=== PATIENT | male | born 1940 | race Caucasian/White ===

== ENCOUNTER 2023-11-29 11:16 | Outpatient (RCR) | payer OTHER, SELFPAY | END 2023-11-29 23:59 | disposition home or self-care (01) | LOC: CRHB 11:16 | PROVIDERS: ATTENDING PHYSICIAN Internal Medicine Cardiovascular Disease; FAMILY PHYSICIAN Family Medicine | DX: I25.10 Atherosclerotic heart disease of native coronary artery without angina pectoris (principal); Z95.1 Presence of aortocoronary bypass graft | CPT/HCPCS: G0422; G0423 ==

== ENCOUNTER 2023-12-27 09:37 | Outpatient (RCR) | payer OTHER, SELFPAY | END 2023-12-27 23:59 | disposition home or self-care (01) | LOC: CRHB 09:37 | PROVIDERS: ATTENDING PHYSICIAN Internal Medicine Cardiovascular Disease; FAMILY PHYSICIAN Family Medicine | DX: I25.10 Atherosclerotic heart disease of native coronary artery without angina pectoris (principal); Z95.1 Presence of aortocoronary bypass graft | CPT/HCPCS: G0422; G0423 ==

== ENCOUNTER 2024-01-24 10:55 | Outpatient (RCR) | payer OTHER, SELFPAY ==
[2024-01-16 12:03] LABS: HDL Cholesterol 44 mg/dl; LDL Cholesterol, Calculated 25 mg/dl; Total Cholesterol 84 mg/dl (50-199); Triglyceride 75 mg/dl (10-149); Very Low Density Lipoprotein 15 mg/dl (0-30)
== END 2024-01-24 23:59 | disposition home or self-care (01) ==
LOC: CRHB 10:55
PROVIDERS: ATTENDING PHYSICIAN Internal Medicine Cardiovascular Disease; FAMILY PHYSICIAN Family Medicine
DX: Z95.1 Presence of aortocoronary bypass graft (principal); I25.10 Atherosclerotic heart disease of native coronary artery without angina pectoris
CPT/HCPCS: 36415; 80061; G0422; G0423

== ENCOUNTER → 2024-04-26 09:06 | Outpatient (REF) | payer OTHER, SELFPAY | LOC: RCS 09:06 | PROVIDERS: ATTENDING PHYSICIAN Internal Medicine Cardiovascular Disease; FAMILY PHYSICIAN Family Medicine | DX: Z95.1 Presence of aortocoronary bypass graft (principal); R00.1 Bradycardia, unspecified | CPT/HCPCS: 93306 ==

== ENCOUNTER 2024-07-01 17:41 | Inpatient (IN) | payer OTHER, SELFPAY ==
[2024-07-01] VITALS (9 sets, daily range): BP systolic 136–186; BP diastolic 51–74; PULSE 40–57; BMI 23.1; BMI 22.8
[2024-07-01 13:41] LABS: % Basophils 0.9 % (0-2); % Immature Granulocytes 0.2 % (0-0.5); % Lymphocytes 32.9 % (20.5-51.1); % Monocytes 6.5 % (1.7-9.3); % Neutrophils 54.5 % (42.2-75.2); Absolute Basophils 0.1 10^3/uL (0-0.2); Absolute Eosinophils 0.5 10^3/uL (0-0.7); Absolute Monocytes 0.6 10^3/uL (0.1-0.6); Absolute Neutrophils 4.9 10^3/uL (1.4-6.5); Hematocrit 42.8 % (39.0-52.0); Hemoglobin 15.3 g/dL (13.0-18.0); Mean Corp Hgb Conc. 35.7 g/dL (33.0-37.0); Mean Corpuscular Hgb 32.9 pg (27.0-31.0); Mean Platelet Volume 10.2 fL (7.4-10.4); Nucleated Red Blood Cells % 0 % (-); Platelet Count 184 10^3/uL (130-400); Red Blood Cell Count 4.65 10^6/uL (4.70-6.10); Red Cell Dist. Width 12.2 % (11.5-14.5)
[2024-07-01 14:02] LABS: ALT (SGPT) 15 U/L (0-50); AST (SGOT) 22 U/L (17-59); Albumin 4.6 g/dl (3.5-5.0); Alkaline Phosphatase 80 U/L (38-126); Blood Urea Nitrogen 21 mg/dl (9-20); Calcium 9.6 mg/dl (8.4-10.2); Carbon Dioxide 31 mmol/L (22-30); Chloride 102 mmol/L (98-107); Glucose 97 mg/dl (70-99); Potassium 4.8 mmol/L (3.5-5.1); Sodium 142 mmol/L (135-145); Total Bilirubin 0.7 mg/dl (0.2-1.3); Total Protein 6.7 g/dl (6.3-8.2); eGFR > 60.00
--- NOTE | 2024-07-01 15:20 | EDRN ---
Dr. Andujar in room w/pt at this time.
--- NOTE | 2024-07-01 15:24 | ED.GENMED ---
History of Present Illness
General
Chief Complaint: Dizziness
Source: patient and family
Time Seen by Provider: 07/01/24 14:56
History of Present Illness
History of Present Illness:
This patient is an 84-year-old male presents emergency department with his son. He lives alone and is quite independent and active. He notes yesterday he was starting to feel little lightheaded. This is gotten much more frequent/intense today.
He only feels it when he is standing up or walking around and it makes him feel uneasy. He has not passed out or worried that he would actually pass out. He denies a sense of movement or spinning, associated chest pain or pressure, back pain, neck
pain, headache, dyspnea, numbness, change in vision, change in swallowing, fever, chills, nausea, vomiting, abdominal pain, anorexia, urinary symptoms. He had a normal bowel movement today without black stool or blood. He denies associated
diaphoresis. Patient is asymptomatic as he is here in the bed
Past History
Past History
ED Past Medical History: CAD, HTN and Hypercholesterolemia
ED Past Surgical History: Cardiac and Cholecystectomy
Patient has exhibited threatening behavior?: No
Social History
Tobacco: Non-smoker
Alcohol: Occasional
Drug: None
Living: alone
Family History
Family History: CAD and Other ([place] - mother & sister)
Phy Exam
Physical Exam
Physical Exam:
GENERAL: Alert , in no apparent distress
EYE: pupils equal and reactive
NECK: Supple, no significant adenopathy.
ENT: o/p clr, mmm.
CARDIAC: Regular rate and rhythm .
LUNGS: Clear breath sounds bilaterally, no acute respiratory distress, no wheezes/rales/rhonchi
ABDOMEN: Soft, without focal tenderness, no r/g, no cvat
NEUROLOGICAL: Alert and oriented, no focal neuro deficits, motor 5 out of 5, sensory intact, [id number] normal, cranial nerves II through XII intact, gait normal
SKIN: Warm and dry, skin intact.
MUSCULOSKELETAL: No edema, well perfused.
PSYCH: Normal and appropriate interaction.
Course
Orders/Labs/Results
Orders:
Orders
07/01/24 13:29
ECG [Electrocardiogram (*1)] Urgent
Reason for Study: Vertigo / Dizzy
EKG- Treatment ONCE
07/01/24 13:35
Complete Blood Count/With Diff Urgent
Comprehensive Metabolic Panel Urgent
07/01/24 15:[address] Non Medication Order As Directed
Physician Order: orthostatics
Abnormal Lab Results
07/01/24
13:35
RBC 4.65 L 10^6/uL
(4.70-6.10)
MCH 32.9 H pg
(27.0-31.0)
Carbon Dioxide 31 H mmol/L
(22-30)
BUN 21 H mg/dl
(9-20)
07/01/24 13:35
07/01/24 13:35
Vital Signs
Initial and Last Documented VS:
Initial Vital Signs
Temp Pulse Resp BP Pulse Ox
97.7 F 41 20 186/64 97
07/01/24 13:27 07/01/24 13:27 07/01/24 13:27 07/01/24 13:27 07/01/24 13:27
Last Documented Vital Signs
Temp Pulse Resp BP Pulse Ox
97.7 F 41 20 186/64 97
07/01/24 13:27 07/01/24 13:27 07/01/24 13:27 07/01/24 13:27 07/01/24 13:27
*Critical Care Note
Total Time (30-74mins, 75-104mins- exclusive of procedures): Not Applicable
Update Note
Update Note:
Patient presents to the Emergency Department with lightheadedness
Number and Complexity of Problems Addressed at the Encounter
� Chronic conditions affecting care:
� Acute Exacerbation and/or Progression of Chronic Illness:
� Differential Diagnosis includes: But not limited to electrolyte disorder, anemia/bleeding, vasovagal events, dehydration, arrhythmia, etc.
Amount and/or Complexity of Data to be Reviewed and Analyzed
� I performed an independent evaluation of and my interpretation is:
EKG: Read by me, sinus bradycardia, no acute ischemia
CT:
Xrays:
Laboratory Studies: Generally unremarkable
Other:
� Review of other/old records reveals: Patient had a echo in March 2024 that showed LVH with an EF of 50 to 55%. Patient had a bypass in September 2023. He has had bradycardia in the past, was noted to be in the 40s rate 2022 but
most recent past rate has been in the 50s per
� Clinical information was obtained by an independent historian: Son
� Prescriptions/Medications Considered but not given:
� Further testing considered but not performed:
Risk of Complications and/or Morbidity or Mortality of Patient Management
� Social determinants of health affecting care:
� Discussion with other providers (PCP, Hospitalists, Consultants, etc):
� Escalation of care including admission/observation vs risk of discharge considered:Case discussed with filter washer, Dr. Koch, aware of history, vitals, etc. He reviewed office notes and states that patient has been as low
as in the 40s in the past and there has been consideration for a pacemaker. Given patient is so symptomatic with upright position here, plan is to admit patient with plan for pacemaker this week. Specifically refers to hospitalist for admission.
Case discussed with Dr. Mauricio SEXTON for admission, response that this will go to [facility]
ED Attending Note
-
Portions of this chart may have been created with voice recognition software.� Occasional wrong word or��sound alike� substitutions may have occurred due to the inherent limitations of voice recognition software.
Discharge Plan
Departure
Patient Disposition: Admit
Date of Disposition: 07/01/24
Time of Disposition: 16:28
Admit to: Telemetry
Presentation/result/management discussed w/ accepting MD/DO: Hospitalist
Condition: Fair
Discharge Problem:
Bradycardia
Prescriptions:
No Action
aspirin 81 MG tablet,delayed release (DR/EC)
81 mg PO HS
atorvastatin 40 mg Tablet
40 mg PO QPM
acetaminophen 325 mg Tablet
650 mg PO Q4HPRN PRN (Reason: mild pain,headache,temp >101F ) Qty: 0 0RF
clopidogrel 75 mg Tablet
75 mg PO DAILY Qty: 30 0RF
pantoprazole 40 mg Tablet,Delayed Release (Dr/Ec)
40 mg PO DAILY Qty: 30 0RF
Referrals:
Bridget Hickman MD [Family Provider] -
Interventions
Interventions:
*Risk Screen - Suicide Last Done: 07/01/24 15:47
*General Assessment Last Done: 07/01/24 15:47
*Neglect/Abuse Screening Last Done: 07/01/24 15:47
ED- Fall Risk Assessment Last Done: 07/01/24 15:47
*ED COVID-19 Vaccine History Last Done: 07/01/24 15:47
ED- Neurological Assessment Last Done: 07/01/24 16:08
ED- Cardiac Assessment Last Done: 07/01/24 16:08
ED Swallowing Screen Last Done: 07/01/24 16:08
Discharge Date and Time
Print Language: BOTSWANAN
--- NOTE | 2024-07-01 15:49 | EDRN ---
Pt when orthostatic vs were performed was lying and pt who had been in an SB cardiac rhythm had his heart rate decrease to 38.
--- NOTE | 2024-07-01 15:59 | EDRN ---
At 15:59 this RN wrote a TT to Dr. Andujar:
'Orthostatic vs were okay but his HR decreased as low as 38 when lying flatand just now again when lying at dharmesh 30 degrees. Pt was lightheaded on sitting only and only slightly.'
--- NOTE | 2024-07-01 16:00 | EDRN ---
Pt was moved from room #30 after informing Shanel Martínez charge histotechnologist nurse for an okay w/ code cart placed outside of room. Pt is in SB still w/ HR decreasing at times into the 30's. Son in room w /pt at this time.
--- NOTE | 2024-07-01 16:25 | EDRN ---
Dr. Andujar in room w /pt at this time.
--- NOTE | 2024-07-01 16:25 | EDRN ---
Dr. Andujar in room w/ pt at this time.
--- NOTE | 2024-07-01 16:30 | EDRN ---
Dr. Andujar patient to be admitted for PM r/t symptomatic SB w/ rate decreasing into 30's.
--- NOTE | 2024-07-01 16:52 | EDRN ---
Hospitalist in room w/ pt at this time.
--- NOTE | 2024-07-01 17:08 | HPS.HSE ---
Family Physician
-
Family Physician: Bridget Hickman
Chief Complaint
-
dizziness
History of Present Illness
84-year-old man who yesterday was starting to feel little lightheaded. This became more frequent/intense today. He feels it when he is standing up or walking around. He has not passed out. He denies a sense of movement or spinning, associated
chest pain or pressure, back pain, neck pain, headache, dyspnea, numbness, change in vision, change in swallowing, fever, chills, nausea, vomiting, abdominal pain, anorexia, urinary symptoms. He had a normal bowel movement today without black stool
or blood. He denies associated diaphoresis. Patient is asymptomatic as he is here in the bed with a heart rate in the high 30s. He said his heart rate is usually 'low.' He is on Plavix and ASA. He is not on meds that would cause a low heart
rate.
Medical History
Past Medical History
Past Medical History: Reports Other
Additional Past Medical History:
CAD,
essential HTN
Hypercholesterolemia
History of percutaneous coronary intervention, MAX to RCA, 2 separate procedures, March and July 2009, total of 4 stents
Presence of stent in coronary artery
Thrombocytopenia
Past Surgical History: Reports Other
Additional Past Surgical History:
See above
Social History
Tobacco: Non-smoker
Alcohol: Occasional
Drug: None
Family History
Family History: Not pertinent
Allergies / Home Medications
Allergies reflects when Allergies were last updated in [facility].
Home Medications with original date entered in [facility]
Allergy/Medication List:
Allergies
Allergy/AdvReac Type Severity Reaction Status Date / Time
caffeine [Caffeine] Allergy ANXIOUS, Verified 09/12/23 15:51
DIFF. WITH
BALANCE
Home Medications
aspirin 81 mg tablet,delayed release 81 mg PO HS Heart disease/condition 12/04/20
acetaminophen 325 mg tablet 650 mg (2 x 325 mg) PO Q4HPRN PRN mild pain,headache,temp >101F #0 tabs 10/04/23
clopidogrel 75 mg tablet 75 mg PO DAILY Blood clot prevention/tx #30 tabs 10/04/23
atorvastatin 20 mg tablet 20 mg PO QPM 07/01/24
Review of Systems
-
History Source: Patient
A 12 point ROS was completed and negative except as noted: Yes
Physical Exam
Vital Signs
Vital Signs
Temp Pulse Resp BP Pulse Ox
97.7 F 41 20 186/64 97
07/01/24 13:27 07/01/24 13:27 07/01/24 13:27 07/01/24 13:27 07/01/24 13:27
Physical Exam
General: Well Developed, Well Nourished, No Apparent Distress, Comfortable and Conversant
HEENT: NormoCephalic, Anicteric, Moist mucous membranes, Atraumatic, [place] Conjunctivae, No Ptosis, Nose Appears Normal and Ears Appear Normal
Respiratory: Clear
Cardiac: S1/S2 and Bradycardia
GI: Soft, Non Tender and Non Distended
Musculoskeletal: No Clubbing, No Cyanosis and No Edema
Skin: Warm and Dry; No Rash or Jaundice
Neuro: Awake, Alert, Oriented and AO x 3
Psych: Calm
Laboratory Results
-
07/01/24 13:35
07/01/24 13:35
Laboratory Results
Total Bilirubin 0.7 mg/dl (0.2-1.3) 07/01/24 13:35
AST 22 U/L (17-59) 07/01/24 13:35
ALT 15 U/L (0-50) 07/01/24 13:35
Alkaline Phosphatase 80 U/L (38-126) 07/01/24 13:35
Data Reviewed
-
Lab Data: Labs Reviewed by me
Impression/Plan
-
IMPRESSION:
84 man with symptomatic bradycardia with rate in the high 30s.
PLAN:
1. Bradycardia
Cardiology consult:
Likely inpatient pacemaker
Hold Plavix tonight
IVU admit tonight
2. BUN/Creat > 20, probable mild dehydration
Encourage PO intake tonight
Recheck in am
3. BP 186/64, likely worry/stress of hospitalization
Monitor overnight
Avoid beta blockers or agents that slow heart rate.
If still elevated in AM, discuss best agent with cardiology
4. H/O thrombocytopenia, PLT now 184
Not an active problem
OK to proceed with pacemaker procedure
Full code
VCD for DVTp
[2024-07-01] MEDS: LIPITOR 20 MG PO (21:13)
[2024-07-01] MEDS: ASPIR LOW (ENTERIC COATED) 81 MG PO (21:13)
--- NOTE | 2024-07-01 21:37 | PTCARENOTE ---
Pt admitting in 2247- assessment and admission completed at documented. POC discussed- pt verbalized understanding. SB 40s- 50 at this time.
[2024-07-02] VITALS (10 sets, daily range): BP systolic 133–161; BP diastolic 56–81; PULSE 42–72
[2024-07-02 05:38] LABS: Hematocrit 41.7 % (39.0-52.0); Mean Corpuscular Hgb 33.7 pg (27.0-31.0); Mean Corpuscular Volume 93.7 fL (80.0-94.0); Mean Platelet Volume 10.3 fL (7.4-10.4); Platelet Count 161 10^3/uL (130-400); Red Blood Cell Count 4.45 10^6/uL (4.70-6.10); Red Cell Dist. Width 12.2 % (11.5-14.5); White Blood Cell Count 6.4 10^3/uL (4.8-10.8)
[2024-07-02 06:01] LABS: Blood Urea Nitrogen 22 mg/dl (9-20); Carbon Dioxide 26 mmol/L (22-30); Chloride 108 mmol/L (98-107); Estimated Creatinine Clearance 84 ml/min; Glucose 92 mg/dl (70-99); Potassium 4.4 mmol/L (3.5-5.1); Sodium 142 mmol/L (135-145); eGFR > 60.00
[2024-07-02 06:39] LABS: TSH 2.06 uIU/ml (0.47-4.68)
--- NOTE | 2024-07-02 06:43 | W.PN.HOSP.TC ---
Today's Communication/Plan
-
.
Assessment / Plan
Assessment / Plan
Physical Exam
General: Well Developed, Well Nourished, No Apparent Distress, Comfortable and Conversant
HEENT: NormoCephalic, Anicteric, Moist mucous membranes, Atraumatic, [place] Conjunctivae,.
Respiratory: Clear
Cardiac: S1/S2 and Bradycardia
GI: Soft, Non Tender and Non Distended
Musculoskeletal: No Clubbing, No Cyanosis and No Edema
Skin: Warm and Dry; No Rash or Jaundice
Neuro: Awake, Alert, Oriented and AO x 3
Psych: Calm
84 man with symptomatic bradycardia with rate in the high 30s.
PLAN:
# Symptomatic bradycardia
He reports lightheadedness at times. No chest pain
No evidence of acute ischemia on EKG
No Hx of rate control medications intake
Hold Plavix
Normal TSH
Echocardiogram in March 2024 showed LVH, LVEF 50 to 55%, mild MR, mild aortic regurgitation.
Appreciate cardiology input. Primary pharmaceutical analyst is Dr Cordero.
# Primary Hypertension
well compensating for his low heart rate
# H/O thrombocytopenia, PLT count seems acceptable.
Not an active problem
OK to proceed with pacemaker procedure
# Mixed hyperlipidemia
Full code
VCD for DVTp
Total time spent to see the patient, examine the patient on the floor, review data and lab results, discuss the treatment plan with the patient, nursing staff around 55 minutes
Anticipated Discharge: 24 - 48 hours
Subjective/Interval History
-
Date of Service: July 02, 2024
No chest pain
NO sob
No palpitation
HR around 44
Objective Data
-
Labs:
Laboratory Results
07/02/24
05:14
WBC 6.4
Hgb 15.0
Hct 41.7
Plt Count 161
Sodium 142
Potassium 4.4
Chloride 108 H
Carbon Dioxide 26
BUN 22 H
Creatinine 0.7
Glucose 92
Calcium 9.0
Vital Signs:
Vital Signs
Temp Pulse Resp BP Pulse Ox
98.0 F 47 18 161/58 98
07/02/24 04:20 07/02/24 06:12 07/02/24 04:20 07/02/24 06:12 07/02/24 04:20
--- NOTE | 2024-07-02 07:08 | PTCARENOTE ---
Chest clipped, CHG wiped and gown changed.
--- NOTE | 2024-07-02 07:42 | CON.CAR ---
Addendum entered and electronically signed by Julian Gilman MD 07/02/24 10:07:
I saw and examined the patient.
The Suction Roller's note was reviewed and I agree with the note.
Comment:
GEN: No distress, awake, Ox3
HEENT: supple, anicteric, mmm
LUNGS: CTA, no wheezes/rales
CV: Reg, S1/S2, 1/6 syst LSB, no gallop
ABD: soft, BS+, NT/ND
EXT: No edema
NEURO: Gross non-focal
SKIN: No rash
Plan:
84-year-old male with past medical history of CABG August 2023 presents with dizziness, lightheadedness, and near syncope. Over the past several days this has worsened especially with exertion. His beta-blockers were stopped post bypass surgery.
He denies any chest pains or shortness of breath. He denies dehydration. He was found to have heart rates in the 30s with marked sinus bradycardia.
Echo from March 2024 with EF 50 to 55%, mild aortic stenosis, and mild mitral regurgitation.
With continued symptomatic bradycardia with coronary artery disease and the need for beta-effie therapy, we agreed to proceed with permanent pacemaker in AM. N.p.o. after midnight. Orthostatic vital signs were negative.
Continue aspirin and atorvastatin. Hold Plavix.
Original Note:
Consultation
Consultation Request
Date/Time Consultation Performed: 07/02/24
Requesting Provider: Dr. Reagan
Performing Provider: Ana Maria Hale PA-C for Dr. Gilman
Reason for Consultation: bradycardia
Medical History
-
Chief Complaint: bradycardia
History of Present Illness:
Patient is an 84-year-old male with past medical history of CAD status post remote stenting to RCA in 2008, status post CABG 08/2023 with history of chronic sinus bradycardia. He reports post bypass his heart rates had been up to the 60s for a
time, however then seem to have trended back down. At last office visit 02/2024 was noted to have a heart rate of 40 not on AV noelle blocking agents. He underwent repeat echocardiogram with EF 50%, no significant change compared to prior. He was
recommended a 5-day monitor, although it does not appear this was ever completed. He now presents back with lightheadedness. He states over the last several days he has noted episodes of lightheadedness feeling as though he was going to pass out
worse with standing or walking, relieved with sitting down. He denies associated chest pain or shortness of breath. He denies recent changes to medications, new supplements. He does not feel as though he is dehydrated. Denies thyroid issues.
Cardiology consulted for evaluation
PMH:
CAD
s/p CABG x3 (CHEN-LAD, SVG-PDA, SVG-OM) and LAAL 09/27/2023 w/ Dr. Saucedo
s/p 3.5 mm and 3 mm Xience to ostial and mid to distal RCA 04/16/09
s/p 3.5 mm Xience to ostial RCA and 3.0 mm Xience to mid RCA 08/07/09
HTN
HLD
Sinus bradycardia
h/o chest pain and eventually s/p lap scar 2020
Past Medical History
Past Medical History: Other (in HPI)
Past Surgical History: Cardiac (RCA PCI 2010), Cholecystectomy and Orthopedic
Social History
Tobacco: Non-Smoker
Alcohol: Occasional
Drug: None
Personal:
Living: Alone
Family History
Family History: CAD
Allergies / Home Medications
Allergy/AdvReac Type Severity Reaction Status Date / Time
caffeine [Caffeine] Allergy ANXIOUS, Verified 09/12/23 15:51
DIFF. WITH
BALANCE
�Medication �Instructions �Recorded �Confirmed �Type
aspirin 81 mg tablet,delayed 81 mg PO HS Heart disease/condition 12/04/20 07/01/24 History
release
acetaminophen 325 mg tablet 650 mg (2 x 325 mg) PO Q4HPRN PRN 10/04/23 07/01/24 Rx
mild pain,headache,temp >101F #0
tabs
clopidogrel 75 mg tablet 75 mg PO DAILY Blood clot 10/04/23 07/01/24 Rx
prevention/tx #30 tabs
atorvastatin 20 mg tablet 20 mg PO QPM High Cholesterol 07/01/24 07/01/24 History
Review of Systems
-
History Source: Patient
All other systems: Negative unless noted
Physical Exam
Vital Signs
Temp Pulse Resp BP Pulse Ox
98.3 F 47 18 161/58 96
07/02/24 07:15 07/02/24 06:12 07/02/24 07:15 07/02/24 06:12 07/02/24 07:15
Lab Results
07/02/24 05:14
07/02/24 05:14
Physical Exam
General: No Apparent Distress and Comfortable
HEENT: Normocephalic, Anicteric and Moist Mucous Membranes
Respiratory: Clear and Non Labored Respirations
Cardiac: S1/S2, Regular Rhythm and Other (tarik)
GI: Normal Bowel Sounds
Musculoskeletal: No Clubbing, No Cyanosis and No Edema
Skin: Warm and Dry
Neuro: AO x 3
Impression / Plan
-
Primary Blood Bank Custodian: Dr. YFN Cordero
Assessment:
Presentation with lightheadedness
Sinus bradycardia
CAD
s/p CABG x3 (CHEN-LAD, SVG-PDA, SVG-OM) and LAAL 09/27/2023 w/ Dr. Saucedo
s/p 3.5 mm and 3 mm Xience to ostial and mid to distal RCA 04/16/09
s/p 3.5 mm Xience to ostial RCA and 3.0 mm Xience to mid RCA 08/07/09
HTN
HLD
h/o chest pain and eventually s/p lap scar 2020
ECHO 10/02/23: Technically difficult study, EF 50%, abnormal septal motion consistent with postop status, mild , peak/mean gradient 16/9 mmHg, no AR
ECHO 04/26/24: EF 50 to 55%, mild LVH, trace to mild MR, borderline AAS with trace AR, peak/mean gradient 17/9 mmHg, normal right heart
Plan:
-Patient presents with several days of lightheadedness, mostly with standing and walking, relieved by sitting
-He has baseline sinus bradycardia with heart rates in the 40s to 50s by review of prior notes. Apparently was in the 30s on presentation, however current heart rate in 50s.
-Recent echo with results as above, will not repeat at this time
-not on AV noelle blocking agents
-TSH WNL
-check ortho VS
-ambulate to see if pulse drops with ambulation
-may require pacemaker this admission
-continue asa. plavix on hold
Data Reviewed
-
EKG: Tracing Personally Visualized and interpreted
Medical Tests (Nuc Med, Echo etc): Report Reviewed by me
Labs: Labs Reviewed by me
Old Records: Reviewed
--- NOTE | 2024-07-02 08:36 | PTCARENOTE ---
Ortho vitals obtained, charted, denies lightheadedness with standing
--- NOTE | 2024-07-02 11:21 | PTCARENOTE ---
Addendum entered by Eliot Hernandez RN 07/02/24 11:30:
Patient denies lightheadedness at rest. SB HR 40-50's, BP 146/62. Walked in [place] earlier today with assistance. Using call mcclellan for assistance out of bed
Original Note:
Patient denies lightheadedness at rest. SB HR 40-50's, BP 109/61. Walked in [place] earlier today with assistance. Using call mcclellan for assistance out of bed
--- NOTE | 2024-07-02 12:34 | CM ---
Chart reviewed. Patient is independent of ADLS, lives alone in a split level,0 MACHO, 0 DME. Plan is for the patient to return home. CM to follow
[2024-07-02] MEDS: LIPITOR 20 MG PO (17:13)
[2024-07-02] MEDS: ASPIR LOW (ENTERIC COATED) 81 MG PO (20:58)
--- NOTE | 2024-07-02 21:12 | PTCARENOTE ---
Assumed care of pt. AOPrincess and pleasant. Tele- SB. HR 40-50s. Pt has no c/o at this time. POC reviewed w/ pt. Verbalizes understanding. Currently in bed; call eleuterio w/in reach.
[2024-07-03] VITALS (13 sets, daily range): BP systolic 129–155; BP diastolic 55–80
--- NOTE | 2024-07-03 01:35 | PTCARENOTE ---
On ambulation pt HR increases to 60-80s. At rest pt HR 30-40s.
--- NOTE | 2024-07-03 07:30 | W.PN.HOSP.TC ---
Today's Communication/Plan
-
.
Assessment / Plan
Assessment / Plan
Physical Exam
General: Well Developed, Well Nourished, No Apparent Distress, Comfortable and Conversant
HEENT: NormoCephalic, Anicteric, Moist mucous membranes, Atraumatic, [place] Conjunctivae,.
Respiratory: Clear
Cardiac: S1/S2 and Bradycardia
GI: Soft, Non Tender and Non Distended
Musculoskeletal: No Clubbing, No Cyanosis and No Edema
Skin: Warm and Dry; No Rash or Jaundice
Neuro: Awake, Alert, Oriented and AO x 3
Psych: Calm
84 man with symptomatic bradycardia with rate in the high 30s.
PLAN:
# Symptomatic bradycardia
Plan for pacemaker today, NPO this morning
He reports lightheadedness at times. No chest pain
No evidence of acute ischemia on EKG
No Hx of rate control medications intake
Hold Plavix
Normal TSH
Echocardiogram in March 2024 showed LVH, LVEF 50 to 55%, mild MR, mild aortic regurgitation.
Appreciate cardiology input. Primary automotive service management teacher is Dr Cordero.
# Primary Hypertension
well compensating for his low heart rate
# H/O thrombocytopenia, PLT count seems acceptable.
Not an active problem
OK to proceed with pacemaker procedure
# Mixed hyperlipidemia
Full code
VCD for DVTp
Total time spent to see the patient, examine the patient on the floor, review data and lab results, discuss the treatment plan with the patient, nursing staff around 55 minutes
Anticipated Discharge: 24 - 48 hours
Subjective/Interval History
-
Date of Service: July 03, 2024
No chest pain
No sob
Objective Data
-
Vital Signs:
Vital Signs
Temp Pulse Resp BP Pulse Ox
97.6 F 43 16 154/55 95
07/03/24 01:30 07/03/24 01:34 07/03/24 01:30 07/03/24 01:34 07/03/24 01:30
--- NOTE | 2024-07-03 07:47 | W.PN.UPDATE ---
Update Note
Progress Note Update
Briefly, patient is a pleasant 84-year-old male with a past medical history significant for CAD with PCI 2008 and CABG August 2023, hypertension, hyperlipidemia who presented for worsening symptomatic bradycardia. Patient symptoms including
dizziness, lightheadedness, and near syncope. Due to patient's symptomatic bradycardia in the setting of coronary artery disease and need for beta-effie therapy (AV noelle blocking agents), patient would benefit from implantation of a dual-chamber
pacemaker. We discussed pacemaker indications and device implant in detail. For implant there is an approximate 1:1000 risk of AL/stroke/ and a 1% risk of pneumothorax/tamponade/infection/bleeding. We also discussed post procedure implant
restrictions including positions to avoid with implant arm for first six weeks after implant as well as driving restrictions. I took time to answer all questions. Consent signed and placed on chart. Patient remain n.p.o., hold Plavix for now.
--- NOTE | 2024-07-03 09:45 | PTCARENOTE ---
Assumed care at 0700. Patient in bed resting comfortable, denies lightheadedness at rest. SB HR 50's, VSS. Plan of care reviewed, report called to the lab support service tech. Son updated over the phone
--- NOTE | 2024-07-03 12:37 | PTCARENOTE ---
2% CHG wipes to chest completed
--- NOTE | 2024-07-03 13:50 | PTCARENOTE ---
Report given and patient sent to the EP lab in his bed
--- NOTE | 2024-07-03 14:05 | CM ---
CM following for DC planning needs.
Met w/ patient at bedside. He is anticipating a PPM today and is awaiting this procedure.
Anticipated DC plan is for home, no needs.
CM to follow for DC planning needs.
--- NOTE | 2024-07-03 15:50 | ITS.CL.PACE ---
Photo Mask Inspector - Pacemaker Implant
Pacemaker Implant
Procedure Report:
Primary Care Doctor: Bridget Hickman MD
Primary Supervisor Glycerin: Emmanuel Cordero MD
Procedure Date: 07/03/2024
Name of procedure:
1. Placement of a dual-chamber pacemaker with left bundle area pacing lead for conduction system pacing
2. Subclavian venography
History:
1. Patient is a pleasant 84-year-old male with a past medical history significant for hypertension, hyperlipidemia, CAD status post PCI 2008 followed by CABG 2022 with symptomatic bradycardia. Patient experienced lightheadedness, dizziness,
near-syncope. Patient off beta-effie therapy due to bradycardia however given CAD, patient needs beta-effie therapy/AV noelle blocking agents for continued treatment.
2. Please refer to H&P for complete history.
Indication:
Symptomatic bradycardia
Need for AV noelle blocking agents due to coronary vascular disease
Methods:
After informed consent was obtained, the patient was brought to the EP laboratory in a postabsorptive, nonsedated state. Peripheral IV access was established. Prophylactic antibiotics were administered prior to incision. Continuous ECG, blood
pressure, and pulse oximetry were initiated. Cardioversion patch electrodes were placed on the patient's chest and back. A grounding patch was applied to the skin. Sedation was administered by anesthesia services.
In order to define the extrathoracic portion of the subclavian vein and exclude significant venous obstruction or anomalous anatomy, subclavian venography was performed prior to the procedure. Using the patient's left peripheral IV, contrast was
injected and images were recorded. The left subclavian vein and SVC were found to be widely patent.
The left chest was prepared and draped in a sterile fashion. A time-out was performed. Local anesthesia was injected in the subcutaneous tissue in the infraclavicular area. An incision was made medial to the deltopectoral groove. The subcutaneous
tissue was dissected the level of the prepectoral fascia. A subcutaneous pocket was created. Under fluoroscopic guidance and with the assistance of the images from the venogram, 2 separate venipunctures were made using micropuncture and modified
Seldinger technique. These were performed in the extrathoracic portion of the subclavian vein. Guidewires were passed and two peel-away sheaths were placed, and used to advance leads into the circulation.
Fluoroscopy was used to determine likely anatomic site for left bundle branch pacing. The Evena Medicaltronic C315 sheath was used to deliver the Medtronic 3830 Selectsecure pacing lead with the helix exposed just exposed from the sheath tip during continuous
monitoring when pacemapping the septum during gentle clockwise rotation to obtain a paced QRS morphology of a W pattern in lead V1. Once the suspected optimal site was identified, lead deployment was performed with several rapid rotations as paced
QRS morphology was intermittently monitored until a paced QRS complex in lead V1 demonstrated development of an R wave (qR or rSR). Unipolar pacing impedance dropped by approximately 100-200 ohms suggesting it had reached the left ventricular
subendocardial. Stable VEgm injury current is present throughout lead position and at end of case. Final unipolar pacing impedance is 1350 Ohms. Unipolar pacing threshold is stable at 0.5 V @ 0.4 ms. The patient had pre-existing narrow QRS. Final
conduction system paced QRS complex duration is 109 ms, LVAT is 62 ms, and peak V5 -> peak V1 timing is 63 ms. The C315 sheath was slit under fluoroscopy ensuring lead position and stability.
Next, the right atrial lead was positioned in the right atrial appendage. Adequate sensing and pacing parameters were found, and no diaphragmatic stimulation was seen [id number] high-output pacing. Both sheaths were split, and the leads were
secured to the fascia with Ethibond ties.
The pocket was flushed with antibiotic solution and hemostasis was assured. The generator was connected to the leads and placed inside the pocket. The device was sutured to the fascia. Floseal was applied. The wound was closed with 3 running
layers of absorbable suture, and steri-strips were applied. Dressing applied over steri-strips in standard fashion.
Following the procedure, the patient was taken to the recovery area in stable condition. A chest x-ray to be obtained post procedure as routine.
Lead parameters and device programming:
- RA Lead (Medtronic, Model 5076, # [id number]): Sensing 5.1 mV, Pacing threshold 0.5 V at 0.4 ms, Imp 551 Ohm
- RV Lead (Medtronic, Model 3830, #[id number]): Sensing 9.4 mV, Pacing threshold 0.5 V at 0.4 ms, Imp 741 Ohm
- Device: Medtronic, Model W1DR01 pacemaker (#[id number]), programmed AAIR�DDDR, mode switch on, lower rate 60, upper tracking rate 130
Conclusions:
1. Successful placement of a dual-chamber pacemaker with conduction system pacing (LBBAP)
2. Subclavian venography
Recommendations:
1. Return to patient room
2. Chest x-ray today, [facility] in AM
3. IV antibiotics while the patient is admitted.
4. OK to resume home medications as indicated
5. Pressure dressing to be removed in AM, aquacell to remain until wound check
6. Follow-up will be arranged in the office in 7-10 days post-discharge
Filipe Hinojosa, DO
Clinical Cardiac Section Repairer
cc: Bridget Hickman MD; Emmanuel Cordero MD
--- NOTE | 2024-07-03 16:25 | PTCARENOTE ---
Patient received form the lab animal technologist. He is AO x 3, denies pain. Left chest wall pressure intact with immobilizer. NSR HR in 70's, BP 155/75, 98% on room air.
[2024-07-03] MEDS: LIPITOR 20 MG PO (16:53)
--- NOTE | 2024-07-03 17:42 | PTCARENOTE ---
Patient tolerated dinner, denies pain and sent to X-ray in wheelchair.
--- NOTE | 2024-07-03 21:36 | PTCARENOTE ---
Assumed care of pt. Tele- SR. L chest wall w/ steri-strips, aqaucel, and pressure dsg c/d/i. L arm immobilizer on. Pt aware of activity restrictions. Pt has no c/o at this time. Currently in bed; call eleuterio w/in reach.
[2024-07-03] MEDS: ANCEF 5 IV (22:21)
[2024-07-03] MEDS: ASPIR LOW (ENTERIC COATED) 81 MG PO (22:21)
[2024-07-03] MEDS: TYLENOL 650 MG PO (22:39)
[2024-07-04 04:45] VITALS: BP 129/67
[2024-07-04] MEDS: ANCEF 5 IV (04:53)
[2024-07-04 05:16] LABS: Hematocrit 42.6 % (39.0-52.0); Hemoglobin 15.4 g/dL (13.0-18.0); Mean Corp Hgb Conc. 36.2 g/dL (33.0-37.0); Mean Corpuscular Volume 91.4 fL (80.0-94.0); Mean Platelet Volume 10.3 fL (7.4-10.4); Platelet Count 165 10^3/uL (130-400); Red Blood Cell Count 4.66 10^6/uL (4.70-6.10); Red Cell Dist. Width 12.3 % (11.5-14.5); White Blood Cell Count 8.1 10^3/uL (4.8-10.8)
[2024-07-04 05:39] LABS: Blood Urea Nitrogen 18 mg/dl (9-20); Carbon Dioxide 22 mmol/L (22-30); Chloride 104 mmol/L (98-107); Estimated Creatinine Clearance 84 ml/min; Glucose 95 mg/dl (70-99); Magnesium 1.9 mg/dl (1.6-2.3); Potassium 4.1 mmol/L (3.5-5.1); Sodium 141 mmol/L (135-145); eGFR > 60.00
--- NOTE | 2024-07-04 06:13 | PTCARENOTE ---
Care link completed this AM.
[2024-07-04 06:42] VITALS: BP 141/68
--- NOTE | 2024-07-04 07:00 | PTCARENOTE ---
pt received at change of shift. AAOx3. pt denies pain. A paced on telemetry heart rate 60s. pulses palpable. no edema. pt on room air. lung sounds clear. left chest wall incision with aquacel, scant amount of old drainage. active bowel sounds
tolerating diet, denies nausea. voiding in bathroom. pt ambulated independently without difficulty. see worklist for full nursing assessment and interventions.
--- NOTE | 2024-07-04 07:36 | W.PN.CARDCBS ---
Addendum entered and electronically signed by Filipe Hinojosa DO 07/04/24 09:01:
I saw and examined the patient.
The Body Masker's note was reviewed and I agree with the note.
Comment:
GENERAL: no acute distress
EYE: sclera anicteric
NECK: Supple, no JVD, no carotid bruit appreciated
ENT: normal nose, moist mucosal membranes
CARDIAC: Regular rate and rhythm, +S1/S2, no murmur, rubs, or gallops; L CIED site C/D/I, non-tender
CHEST/PULMONARY: Normal effort, clear breath sounds
ABDOMEN: Soft, without focal tenderness or distention
NEUROLOGICAL: Alert and oriented x3
SKIN: Warm and dry, no rash
PSYCH: Normal and appropriate interaction.
A/P as below
Patient doing well post pacemaker implantation
APVS on telemetry
CXR no PTX
[facility] shows appropriate device function, stable lead sensing, impedance, pacing thresholds
Start toprol XL 25 mg daily for ischemic heart disease
Resume plavix 07/05; incision check scheduled
OK to DC from CV standpoint
Original Note:
Today's Communication / Plan
-
doing well s/p PPM
add toprol 25mg daily
resume plavix 07/05
ok for DC
OP cardiac follow up arranged
Impression / Plan
-
Primary Admissions Clinician: Dr. YFN Cordero
Assessment:
Presentation with lightheadedness
Sinus bradycardia
s/p Medtronic DC PPM 07/03/24
CAD
s/p CABG x3 (CHEN-LAD, SVG-PDA, SVG-OM) and LAAL 09/27/2023 w/ Dr. Saucedo
s/p 3.5 mm and 3 mm Xience to ostial and mid to distal RCA 04/16/09
s/p 3.5 mm Xience to ostial RCA and 3.0 mm Xience to mid RCA 08/07/09
HTN
HLD
h/o chest pain and eventually s/p lap scar 2020
ECHO 10/02/23: Technically difficult study, EF 50%, abnormal septal motion consistent with postop status, mild , peak/mean gradient 16/9 mmHg, no AR
ECHO 04/26/24: EF 50 to 55%, mild LVH, trace to mild MR, borderline AAS with trace AR, peak/mean gradient 17/9 mmHg, normal right heart
Plan:
-Presented with lightheadedness.
-Underwent Medtronic DC pacemaker placement 07/03 for symptomatic sinus bradycardia
-Remains A-paced on review of telemetry
-As now post PPM, add Toprol 25 mg daily as with several brief episodes of sinus tach on review of telemetry overnight
-Chest x-ray without pneumothorax, no acute process
-continue asa. resume plavix tomorrow, 07/05/24
-OP cardiac follow up arranged
-activity restrictions reviewed with patient
-ok for DC today from cardiac standpoint
-d/w hospitalist via TT
Progress Note - Admissions Clinician
Subjective
Date of Service: July 04, 2024
Feels better this morning. No lightheadedness.
Objective
Labs:
07/04/24 04:51
07/04/24 04:51
Labs
Hgb 15.4 g/dL (13.0-18.0) 07/04/24 04:51
Hct 42.6 % (39.0-52.0) 07/04/24 04:51
Plt Count 165 10^3/uL (130-400) 07/04/24 04:51
Sodium 141 mmol/L (135-145) 07/04/24 04:51
Potassium 4.1 mmol/L (3.5-5.1) 07/04/24 04:51
BUN 18 mg/dl (9-20) 07/04/24 04:51
Creatinine 0.7 mg/dL (0.7-1.3) 07/04/24 04:51
Glucose 95 mg/dl (70-99) 07/04/24 04:51
Vital Signs and I&O:
Vital Signs
Temp Pulse Resp BP Pulse Ox
98.1 F 60 16 129/67 95
07/04/24 06:44 07/04/24 04:45 07/04/24 06:44 07/04/24 04:45 07/04/24 06:44
Vital Signs
Temp Pulse Resp BP Pulse Ox
98.1 F 60 16 129/67 95
07/04/24 06:44 07/04/24 04:45 07/04/24 06:44 07/04/24 04:45 07/04/24 06:44
Physical Exam
Physical Exam
GEN: No distress, awake, alert, oriented x3
HEENT: supple, anicteric, mmm, eomi
LUNGS: CTA B/L, no wheezes/rales
CV: Reg, S1/S2, no murmur
ABD: soft, BS+, NT/ND
EXT: No cyanosis, clubbing, edema
NEURO: Gross non-focal
SKIN: Warm, pink, dry. No rash. L chest dressing with small amount of dried blood
--- NOTE | 2024-07-04 07:39 | W.PN.HOSP.TC ---
Today's Communication/Plan
-
Likely dc today
Resume Plavix
Assessment / Plan
Assessment / Plan
Physical Exam
General: Well Developed, Well Nourished, No Apparent Distress, Comfortable and Conversant
HEENT: NormoCephalic, Anicteric, Moist mucous membranes, Atraumatic, [place] Conjunctivae,.
Respiratory: Clear
Cardiac: S1/S2 and Bradycardia
GI: Soft, Non Tender and Non Distended
Musculoskeletal: No Clubbing, No Cyanosis and No Edema
Skin: Warm and Dry; No Rash or Jaundice
Neuro: Awake, Alert, Oriented and AO x 3
Psych: Calm
84 man with symptomatic bradycardia with rate in the high 30s.
PLAN:
# Symptomatic bradycardia
s/p placement of a dual-chamber pacemaker with left bundle area pacing lead for conduction system pacing by Dr Hinojosa on 07/03. No complications reported
EKG this morning: paced rhythm
History: He reported lightheadedness at times. No chest pain
No evidence of acute ischemia on EKG
No Hx of rate control medications intake
Held Plavix
Normal TSH
Echocardiogram in March 2024 showed LVH, LVEF 50 to 55%, mild MR, mild aortic regurgitation.
Appreciate cardiology input. Primary lipstick molder is Dr Cordero.
# Primary Hypertension
No headache
. SBP this morning 129
# H/O thrombocytopenia, PLT count seems acceptable.
Not an active problem
OK to proceed with pacemaker procedure
# Mixed hyperlipidemia
Full code
VCD for DVTp
Total discharge time spent to see the patient, examine the patient on the floor, review data and lab results, discuss the discharge plan with the patient, nursing staff around 65 minutes
Anticipated Discharge: Today
Subjective/Interval History
-
Date of Service: July 04, 2024
No chest pain
Slept well
Objective Data
-
Labs:
Laboratory Results
07/04/24
04:51
WBC 8.1
Hgb 15.4
Hct 42.6
Plt Count 165
Sodium 141
Potassium 4.1
Chloride 104
Carbon Dioxide 22
BUN 18
Creatinine 0.7
Glucose 95
Calcium 9.0
Vital Signs:
Vital Signs
Temp Pulse Resp BP Pulse Ox
98.1 F 60 16 129/67 95
07/04/24 06:44 07/04/24 04:45 07/04/24 06:44 07/04/24 04:45 07/04/24 06:44
[2024-07-04 08:59] VITALS: BP 143/65
[2024-07-04] MEDS: TOPROL XL 25 MG PO (09:26)
--- NOTE | 2024-07-04 09:40 | W.DCSUMMARY ---
Discharge Summary
Discharge Data
Date of Admission: 07/01/24
Date of Discharge: 07/04/24
-
Pending Results: No
Hospital Course
84 years old male presented with symptomatic bradycardia. No evidence of acute cardiac ischemia. No metabolic abnormalities. Normal thyroid-stimulating hormone. Patient was evaluated by financial services officer. He underwent pacemaker implantation without
complication by Dr. Hinojosa on July 03, 2024. Patient remained hemodynamically stable. He was started on low-dose Toprol XL 25 mg daily. Chest radiography did not show pneumothorax postprocedure. [facility] showed appropriate device function
with stable lead sensing, impedance and pacing thresholds. Patient was discharged home in a stable condition.
Discharge Plan
-
Patient Disposition: Home (Routine Discharge)
Discharge Diagnosis/Procedures: Symptomatic bradycardia status post placement of a dual-chamber pacemaker with left bundle area pacing lead for conduction system pacing by Dr Hinojosa on 07/03.
Diet: As tolerated
Driving Restrictions: No driving for 1 week
Bathing Restrictions: OK to Shower
Stand Alone Forms: [facility] - Implanted Device
Referrals:
[facility] [Provider Group] - 07/11/24 2:00 pm (Incision check appointment)
Bridget Hickman MD [Family Provider] -
Prescriptions:
New
metoprolol succinate 25 mg Tablet Extended Release 24 Hr
25 mg PO DAILY Qty: 30 0RF
Continued
aspirin 81 MG tablet,delayed release (/EC)
81 mg PO HS
acetaminophen 325 mg Tablet
650 mg PO Q4HPRN PRN (Reason: mild pain,headache,temp >101F ) Qty: 0 0RF
atorvastatin 20 mg Tablet
20 mg PO QPM
Held
clopidogrel 75 mg Tablet
75 mg PO DAILY Qty: 30 0RF
Hold Instructions: Resume on 07/05/24.
Discharge Orders:
Discharge Patient (As Directed); Ordered 07/04/24
Ordered By: Nani Spain
Care Plan Goals
Care Plan Goals:
Problem: Readiness for enhanced knowledge related to diagnosis and treatment plan
Goal: Understand your diagnosis and treatment plan needs, including medications if applicable.
Instructions: Know your diagnosis, underlying causes and treatment plan options, including medications if applicable. Consult with your health care team to learn about your diagnosis and treatment plan, including medications if applicable.
Discharge Date and Time
Print Language: PORTUGUESE
[2024-07-04 10:25] VITALS: BP 140/77
[2024-07-04 11:43] VITALS: BP 145/72
[2024-07-04 12:21] VITALS: BP 132/66
== END 2024-07-04 13:11 | disposition home or self-care (01) | DRG 244 ==
LOC: IVU 17:41
PROVIDERS: Emergency Medicine; Internal Medicine Cardiovascular Disease; Nurse Practitioner Adult Health; ADMITTING PHYSICIAN Internal Medicine; ATTENDING PHYSICIAN Internal Medicine; EMERGENCY PHYSICIAN Emergency Medicine; FAMILY PHYSICIAN Family Medicine; OTHER PHYSICIAN Internal Medicine Cardiovascular Disease
PROC: 02HK3JZ Insertion of Pacemaker Lead into Right Ventricle, Percutaneous Approach (ICD-10-PCS; 2024-07-03)
PROC: 0JH606Z Insertion of Pacemaker, Dual Chamber into Chest Subcutaneous Tissue and Fascia, Open Approach (ICD-10-PCS; 2024-07-03)
PROC: 02H63JZ Insertion of Pacemaker Lead into Right Atrium, Percutaneous Approach (ICD-10-PCS; 2024-07-03)
DX: R00.1 Bradycardia, unspecified (principal); I10 Essential (primary) hypertension; E78.00 Pure hypercholesterolemia, unspecified; I25.10 Atherosclerotic heart disease of native coronary artery without angina pectoris; Z79.02 Long term (current) use of antithrombotics/antiplatelets; Z79.82 Long term (current) use of aspirin
CPT/HCPCS: 33208; 71045; 80048; 80053; 83735; 84443; 85025; 85027; 93005; 99285; C1769; C1785; C1887; C1892; C1898

== ENCOUNTER → 2024-11-07 13:29 | Outpatient (REF) | payer OTHER, SELFPAY | LOC: MRI 13:29 | PROVIDERS: ATTENDING PHYSICIAN Physical Medicine & Rehabilitation; FAMILY PHYSICIAN Family Medicine | DX: M54.16 Radiculopathy, lumbar region (principal) | CPT/HCPCS: 72148 ==